=== PATIENT | male | born 1985 | race Caucasian/White ===

== ENCOUNTER 2019-03-18 14:44 | Emergency (ER) | payer SELFPAY | END 2019-03-18 15:13 | disposition home or self-care (01) | LOC: BURERS 14:44 | DX: S20.359A Superficial foreign body of unspecified front wall of thorax, initial encounter (principal); F17.210 Nicotine dependence, cigarettes, uncomplicated; W45.8XXA Other foreign body or object entering through skin, initial encounter | CPT/HCPCS: 99282 ==

== ENCOUNTER 2020-02-25 07:38 | Emergency (ER) | payer SELFPAY | END 2020-02-25 08:16 | disposition home or self-care (01) | LOC: BURERS 07:38 | DX: S62.306D Unspecified fracture of fifth metacarpal bone, right hand, subsequent encounter for fracture with routine healing (principal); F17.210 Nicotine dependence, cigarettes, uncomplicated; Z71.6 Tobacco abuse counseling; V47.5XXD Car driver injured in collision with fixed or stationary object in traffic accident, subsequent encounter | CPT/HCPCS: 99406 ==